=== PATIENT | male | born 1930 | race Caucasian/White ===

== ENCOUNTER 2018-07-24 13:22 | Emergency (ER) | payer MEDICARE ==
--- NOTE | 2018-07-24 13:41 | EDM.PDOC ---
ED HPI GENERAL MEDICAL PROBLEM - General Stated Complaint: FALL Time Seen by Provider: 07/24/18 13:25 Source of Information: Reports: EMS History Limitations: Reports: Altered Mental Status - History of Present Illness INITIAL COMMENTS - FREE TEXT/NARRATIVE: Pt is 87 year old male, apparently with no PMH. According to EMT, patient moved from [facility] 15 years ago into the community. He has no medical problems. I do not see any clinic chart on him. Pt is unresponsive and history obtained from EMS. According to EMS, pt's called the Law enforcement for welfare check on her father( patient). weapons electrical engineering officer went to patient's residence and knocked on the door. weapons electrical engineering officer could hear the patient slowly walk towards the door, and he open the door. When lawn care technician was talking he just collapsed on to the floor. EMS was called. On EMS arrival pt is unresponsive and has been opening his eyes and looks around. No verbal response. Responds to pain. Does not make any sensible eye contact. Does not move his extremities.. Appears very unhygienic, with smell of urine all over the body. Pt makes nonspecific yes and no responses. When asked if her has chest pain he nodes hsi head " yes". When the same question is repeated, nods his head as "No". Onset: Today Onset Date: 07/24/18 Onset Time: 12:30 Associated Symptoms: Reports: Other (cannot obtain) - Related Data Allergies Allergy/AdvReac Type Severity Reaction Status Date / Time No Known Allergies Allergy Verified 02/18/15 17:21 Home Meds: Home Meds NK [No Known Home Meds] 02/18/15 [History] Past Medical History HEENT History: Reports: Impaired Vision Other HEENT History: Pt wears glasses - Infectious Disease History Infectious Disease History: Reports: Chicken Pox, Measles Social & Family History - Family History Family Medical History: Unobtainable ED ROS GENERAL - Review of Systems Review Of Systems: Unable To Obtain (due to altered mental status.) ED EXAM, GENERAL - Physical Exam Exam: See Below Exam Limited By: Altered Mental Status General Appearance: Lethargic, Other ( very poor general hygiene. only responds to pain stimuli, does no speak , but continues to move his head around and nods his head to questions.) Eye Exam: Bilateral Eye: EOMI, PERRL Ears: Normal External Exam, Normal Canal, Hearing Grossly Normal, Normal TMs Ear Exam: Bilateral Ear: TM normal Nose: Normal Inspection, Normal Mucosa, No Blood Throat/Mouth: Normal Inspection, Other (oral mucosa is dry and coated) Head: Atraumatic, Normocephalic Neck: Normal Inspection, Supple, Non-Tender, Full Range of Motion Respiratory/Chest: No Respiratory Distress, Lungs Clear, Normal Breath Sounds, No Accessory Muscle Use, Chest Non-Tender Cardiovascular: Normal Peripheral Pulses, No JVD, Tachycardia. No: No Murmur Peripheral Pulses: 2+: Carotid (L), Carotid (R), Brachial (L), Brachial (R) GI/Abdominal: Normal Bowel Sounds, Soft, Non-Tender, No Organomegaly, No Distention, No Abnormal Bruit, No Mass, Pelvis Stable Extremities: Normal Inspection, Normal Range of Motion, Non-Tender, Normal Capillary Refill, No Pedal Edema Neurological: Unresponsive, Other (hard to evaluate neuro defecit. pt only responds to deep pain) EKG INTERPRETATION EKG Date: 07/24/18 [place]: Normal P-Wave: Present QRS: Normal EKG Interpretation Comments: sinus tachycardia Course - Vital Signs Text/Narrative:: On arrival pt was unresponsive, and his clothing were completely smelling of urine with dried stains of urine all over the clothing, But no fresh wet urine noted. Monitor showed sinus tachycardia. Initial BP was 94/64mmhg. Lung were clear to auscultation. Afebrile. 2 peripheral IV line were obtained. LAbs were drawn, Pt was immediately taken for CT head, Chest xray and Pelvis CT considering his fall. Also Pt appeared dehydrated, so 1 litre IV normal saline bolus was started. Pt's CBC showed white count of 26K and his lactic acid was elevated at 4.1. Ct head showed no acute changes other than chronic brain matter loss. Chest Xray was negative for infiltrate. His pelvic xray was normal. UA was negative. As patient was getting his bolus, he started to get more alert, he would open his eye, and move his limbs.Also by the time his 1 litre of bolus was in he has got more alert and is responding to verbal commands. Moves all 4 extremities voluntarily. Considering his elevated white count, 2 sets of blood culture were obtained. And patient was started on rocephin 1gm IV followed by azithromycin 500mg IV. Also CT abdomen and pelvis was ordered for completion of workup for sepsis. His CMP is back, his sodium is 158 with chloride of 118 with potassium of 4.6, BUN is 117 and creat is 3.39. Apparently patient is in Acute renal failure secondary to dehydration. After the bolus of normal, considering his elevated sodium and chloride, patient has been started on 1/2 NS at 125 cc/hr. Also his troponin is back and elevated at 0.19( this might be related to severe dehydration with elevated creat). Pt does not c/o chest pain. Pt's mentation has improved since his arrival to emergency room. Has very weak voice but at time does answer questions appropriately, but appears exhausted. Once I had all the results available, I did contact [facility] for inpatient admission considering the acuity of patient, and they cannot accept patient as they do not have bridge repair crew person and dialysis this weekend. I did contact [facility] and discuss patient with Dr. Huizar, hospitalist calculation reviewer. He did prefer to have CK done for rhabdomyolysis, which was normal with in normal limits. Ct abdomen and pelvis shows stool impaction in rectum, no infective process identified. I have contacted Pt's Daughter and discussed with her. She does agree with transfer. Pt's last Pulse is 105 bpm and his Blood pressure is 113/74mmhg. He is hemodynamically stable at the time of transfer. Last Recorded V/S: Last Vital Signs Temp 98.1 F 07/24/18 13:23 Pulse 113 H 07/24/18 13:23 Resp BP 113/72 07/24/18 13:23 Pulse Ox - Orders/Labs/Meds Orders: Active Orders 24 hr Category Date Time Status EKG Documentation Completion [RC] ASDIRECTED Care 07/24/18 13:27 Ordered Insert Urinary Catheter [OM.PC] Q24H Care 07/24/18 14:15 Ordered Urinary Catheter Assessment [RC] ASDIRECTED Care 07/24/18 14:06 Ordered Abdomen Pelvis wo Cont [CT] Stat Exams 07/24/18 15:05 Ordered Chest 1V Frontal [CR] Stat Exams 07/24/18 13:27 Ordered Head wo Cont [CT] Stat Exams 07/24/18 13:29 Ordered Pelvis 1V or 2V [CR] Stat Exams 07/24/18 13:27 Ordered CULTURE BLOOD [BC] Stat Lab 07/24/18 14:02 Ordered CULTURE BLOOD [BC] Stat Lab 07/24/18 15:05 Ordered UA W/MICROSCOPIC [URIN] Stat Lab 07/24/18 13:26 Incomplete Sodium Chloride 0.9% [Saline Flush] Med 07/24/18 14:04 Ordered 10 ml FLUSH ASDIRECTED PRN Peripheral IV Insertion Adult [OM.PC] Routine Oth 07/24/18 14:04 Ordered Medication Orders Sodium Chloride (Saline Flush) 10 ml FLUSH ASDIRECTED PRN PRN Reason: Keep Vein Open Labs: Laboratory Tests 07/24/18 07/24/18 07/24/18 Range/Units 13:25 13:26 14:00 WBC 26.2 H* (4.0-11.0) K/uL RBC 6.70 H (4.50-6.50) M/uL Hgb 19.2 H* (13.0-18.0) g/dL Hct 59.9 H (40.0-54.0) % MCV 89 (76-96) fL MCH 28.7 (27.0-32.0) pg MCHC 32.1 (31.0-35.0) g/dL RDW 18.9 H (11.0-16.0) % Plt Count 231 (150-400) K/uL MPV 11.3 H (6.0-10.0) fL Neut % (Auto) 79.8 H (45.0-70.0) % Lymph % (Auto) 3.9 L (20.0-40.0) % [place] % (Auto) 16.2 H (3.0-10.0) % Eos % (Auto) 0.0 L (1.0-5.0) % Baso % (Auto) 0.1 (0.0-0.5) % Neut # (Auto) 20.90 H (2.00-7.50) K/uL Lymph # (Auto) 1.01 L (1.50-4.00) K/uL [place] # (Auto) 4.23 H (0.20-0.80) K/uL Eos # (Auto) 0.01 L (0.04-0.40) K/uL Baso # (Auto) 0.03 (0.02-0.10) K/uL PT (9.0-11.5) sec INR (1.0-3.5) APTT (24.4-33.2) SECONDS Sodium 156 H (136-145) mmol/L Potassium 4.6 (3.5-5.1) mmol/L Chloride 118 H (98-107) mmol/L Carbon Dioxide 19.8 L (21.0-32.0) mmol/L Anion Gap 22.8 H (5.0-15.0) mmol/L BUN 117 H* (8-26) mg/dL Creatinine 3.39 H* (0.70-1.30) mg/dL Est Cr Clr Drug Dosing TNP Estimated GFR (MDRD) 17 L (>60) MLS/MIN BUN/Creatinine Ratio 34.5 H (6-25) Glucose 177 H (74-100) mg/dL Lactic Acid 4.18 H (0.90-1.70) mmol/L Calcium 8.9 (8.5-10.1) mg/dL Total Bilirubin 1.2 H (0.0-1.0) mg/dL AST 55 H (15-37) U/L ALT 52 (12-78) U/L Alkaline Phosphatase 75 (46-116) U/L Troponin I 0.192 H* (0.000-0.060) ng/mL Total Protein 7.2 (6.4-8.2) g/dL Albumin 2.5 L (3.4-5.0) g/dL Globulin 4.7 H (2.2-4.2) g/dL Albumin/Globulin Ratio 0.5 L (0.8-2.0) Urine Color Urine Appearance (CLEAR) Urine pH (5.0-8.0) Ur Specific [place] (1.003-1.030) Urine Protein (NEGATIVE) mg/dL Urine Glucose (UA) (NEGATIVE) mg/dL Urine Ketones (NEGATIVE) mg/dL Urine Occult Blood (NEGATIVE) Urine Nitrite (NEGATIVE) Urine Bilirubin (NEGATIVE) Urine Urobilinogen (0.2-1.0) E.U./dL Ur Leukocyte Esterase (NEGATIVE) 07/24/18 07/24/18 Range/Units 14:00 14:00 WBC (4.0-11.0) K/uL RBC (4.50-6.50) M/uL Hgb (13.0-18.0) g/dL Hct (40.0-54.0) % MCV (76-96) fL MCH (27.0-32.0) pg MCHC (31.0-35.0) g/dL RDW (11.0-16.0) % Plt Count (150-400) K/uL MPV (6.0-10.0) fL Neut % (Auto) (45.0-70.0) % Lymph % (Auto) (20.0-40.0) % [place] % (Auto) (3.0-10.0) % Eos % (Auto) (1.0-5.0) % Baso % (Auto) (0.0-0.5) % Neut # (Auto) (2.00-7.50) K/uL Lymph # (Auto) (1.50-4.00) K/uL [place] # (Auto) (0.20-0.80) K/uL Eos # (Auto) (0.04-0.40) K/uL Baso # (Auto) (0.02-0.10) K/uL PT 13.2 H (9.0-11.5) sec INR 1.4 (1.0-3.5) APTT 22.6 L (24.4-33.2) SECONDS Sodium (136-145) mmol/L Potassium (3.5-5.1) mmol/L Chloride (98-107) mmol/L Carbon Dioxide (21.0-32.0) mmol/L Anion Gap (5.0-15.0) mmol/L BUN (8-26) mg/dL Creatinine (0.70-1.30) mg/dL Est Cr Clr Drug Dosing Estimated GFR (MDRD) (>60) MLS/MIN BUN/Creatinine Ratio (6-25) Glucose (74-100) mg/dL Lactic Acid (0.90-1.70) mmol/L Calcium (8.5-10.1) mg/dL Total Bilirubin (0.0-1.0) mg/dL AST (15-37) U/L ALT (12-78) U/L Alkaline Phosphatase (46-116) U/L Troponin I (0.000-0.060) ng/mL Total Protein (6.4-8.2) g/dL Albumin (3.4-5.0) g/dL Globulin (2.2-4.2) g/dL Albumin/Globulin Ratio (0.8-2.0) Urine Color Yellow Urine Appearance Clear (CLEAR) Urine pH 5.0 (5.0-8.0) Ur Specific [place] 1.025 (1.003-1.030) Urine Protein 100 H (NEGATIVE) mg/dL Urine Glucose (UA) Negative (NEGATIVE) mg/dL Urine Ketones Negative (NEGATIVE) mg/dL Urine Occult Blood Trace-intact H (NEGATIVE) Urine Nitrite Negative (NEGATIVE) Urine Bilirubin Small H (NEGATIVE) Urine Urobilinogen 2.0 H (0.2-1.0) E.U./dL Ur Leukocyte Esterase Negative (NEGATIVE) Meds: Medications Generic Name Dose Route Start Last Admin Trade Name Freq PRN Reason Stop Dose Admin Sodium Chloride 10 ml 07/24/18 14:04 Saline Flush FLUSH ASDIRECTED PRN Keep Vein Open Discontinued Medications Generic Name Dose Route Start Last Admin Trade Name Freq PRN Reason Stop Dose Admin Ceftriaxone Sodium Confirm 07/24/18 14:08 Rocephin Administered 07/24/18 14:09 Dose 1 gm .ROUTE .STK-MED ONE Azithromycin 500 mg/ Sodium 250 mls @ 250 mls/hr 07/24/18 14:04 Chloride IV 07/24/18 15:03 ONETIME ONE Ceftriaxone Sodium 1 gm/ 50 mls @ 100 mls/hr 07/24/18 14:03 Sodium Chloride IV 07/24/18 14:32 ONETIME ONE Departure - Departure Time of Disposition: 17:30 Disposition: DC/Tfer to [facility] 02 Condition: Fair Clinical Impression: Sepsis, Pneumonia, Acute renal failure, Dehydration, Elevated troponin - Discharge Information *PRESCRIPTION DRUG MONITORING PROGRAM REVIEWED*: Not Applicable *COPY OF PRESCRIPTION DRUG MONITORING REPORT IN PATIENT SANTIAGO: Not Applicable - Problem List & Annotations (1) Acute renal failure SNOMED Code(s): 63279564 Code(s): N17.9 - ACUTE KIDNEY FAILURE, UNSPECIFIED Status: Acute Current Visit: Yes (2) Pneumonia SNOMED Code(s): 934893805 Code(s): J18.9 - PNEUMONIA, UNSPECIFIED ORGANISM Status: Acute Current Visit: Yes (3) Sepsis SNOMED Code(s): 90034246 Code(s): A41.9 - SEPSIS, UNSPECIFIED ORGANISM Status: Acute Current Visit : Yes - Problem List Review Problem List Initiated/Reviewed/Updated: Yes - My Orders Last 24 Hours: My Active Orders 07/24/18 13:26 UA W/MICROSCOPIC [URIN] Stat 07/24/18 13:27 EKG Documentation Completion [RC] ASDIRECTED Chest 1V Frontal [CR] Stat Pelvis 1V or 2V [CR] Stat 07/24/18 13:29 Head wo Cont [CT] Stat 07/24/18 14:02 CULTURE BLOOD [BC] Stat 07/24/18 14:04 Sodium Chloride 0.9% [Saline Flush] 10 ml FLUSH ASDIRECTED PRN Peripheral IV Insertion Adult [OM.PC] Routine 07/24/18 14:06 Urinary Catheter Assessment [RC] ASDIRECTED 07/24/18 14:15 Insert Urinary Catheter [OM.PC] Q24H 07/24/18 15:05 Abdomen Pelvis wo Cont [CT] Stat CULTURE BLOOD [BC] Stat - Assessment/Plan Last 24 Hours: My Active Orders 07/24/18 13:26 UA W/MICROSCOPIC [URIN] Stat 07/24/18 13:27 EKG Documentation Completion [RC] ASDIRECTED Chest 1V Frontal [CR] Stat Pelvis 1V or 2V [CR] Stat 07/24/18 13:29 Head wo Cont [CT] Stat 07/24/18 14:02 CULTURE BLOOD [BC] Stat 07/24/18 14:04 Sodium Chloride 0.9% [Saline Flush] 10 ml FLUSH ASDIRECTED PRN Peripheral IV Insertion Adult [OM.PC] Routine 07/24/18 14:06 Urinary Catheter Assessment [RC] ASDIRECTED 07/24/18 14:15 Insert Urinary Catheter [OM.PC] Q24H 07/24/18 15:05 Abdomen Pelvis wo Cont [CT] Stat CULTURE BLOOD [BC] Stat Assessment:: Sepsis possible pneumonia Acute renal failure secondary to dehydration elevated troponin Plan: I have contacted Pt's Daughter and discussed with her. She does agree with transfer. Pt's last Pulse is 105 bpm and his Blood pressure is 113/74mmhg. Continue IV 1/ 2 NS at 125cc/hr . He is alert and hemodynamically stable at the time of transfer. Further care per Dr. Huizar and his team.
[2018-07-24] MEDS ORDERED: cefTRIAXone 1 GM in Sodium Chloride 0.9% 50 ML IV ONE (14:03)
[2018-07-24] MEDS ORDERED: Sodium Chloride 0.9% 10 ML Syringe FLUSH PRN (14:04)
[2018-07-24] MEDS ORDERED: cefTRIAXone 1 GM Vial ONE (14:08)
[2018-07-24] MEDS: Azithromycin 500 MG in Sodium Chloride 0.9% 250 ML IV ONE ×2 (16:10→18:53)
[2018-07-24 16:33] VITALS: BP 130/74
--- NOTE | 2018-07-24 17:08 | CT ---
DATE OF SERVICE: 07/24/18 CLINICAL DATA: unresponsive with fall UNENHANCED BRAIN CT: Multislice acquisition through the brain without IV contrast was performed. No priors. There is marked diffuse cerebral atrophy. There are periventricular lucencies bilaterally consistent with small vessel ischemic change. No masses or mass effect. No intracranial hemorrhage. No evidence of acute or subacute infarct. No fractures. There is mucosal thickening in the left maxillary sinus consistent with chronic sinusitis. IMPRESSION: No acute intracranial abnormalities. [id number] [facility]
--- NOTE | 2018-07-24 17:11 | CR ---
DATE OF SERVICE: 07/24/18 CLINICAL DATA: unresponsive AP CHEST: Comparison is made to a prior exam dated 06/17/12. The heart size is normal. There is calcification of the aortic arch. There is prominence of the proximal pulmonary artery suggesting the possibility of pulmonary hypertension. There are mild interstitial changes throughout both lungs. There are mild atelectatic changes in both lung bases. The lungs are otherwise clear. No pneumothorax. No pleural effusions. [id number] [facility]
--- NOTE | 2018-07-24 17:13 | CR ---
DATE OF SERVICE: 07/24/18 CLINICAL DATA: fall AP PELVIS: No priors. There is diffuse osteopenia. No acute fracture or dislocation. 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 No focal lytic or blastic bone lesions. [id number] [facility]
--- NOTE | 2018-07-24 17:20 | CT ---
DATE OF SERVICE: 07/24/18 CLINICAL DATA: elevated white count with + lactic acid UNENHANCED ABDOMEN AND PELVIC CT: Multislice acquisition through the abdomen and pelvis without IV or oral contrast was performed. No priors. There is marked breathing motion artifact on most of the images degrading image quality and diagnostic utility. There are interstitial changes in both lower lungs with emphysematous changes bilaterally. There are mild atelectatic changes in both lung bases with a small area of consolidation in the left lung base posteriorly. The heart size is normal. There are mild coronary artery calcifications. The liver appears grossly normal. The gallbladder appears grossly normal. The spleen appears normal. The pancreas appears grossly normal. The right and left adrenals appear grossly normal. There is atrophy of both kidneys. No hydronephrosis. There is a Montesinos catheter within the bladder. The bladder wall appears diffusely thickened, most likely related to decompression. The appendix is not adequately seen. There is a large amount of stool noted within the distal sigmoid colon and rectum. There is diverticulosis of the descending and sigmoid colon. No evidence of diverticulitis. No free air. No free fluid. No dilated loops of bowel. No adenopathy. No aortic aneurysm. No displaced fractures. IMPRESSION: Large amount of stool in distal sigmoid colon and rectum. Other findings as discussed above. [id number] [facility]
== END 2018-07-24 16:44 ==
LOC: LB.ED 13:22
DX: A41.9 Sepsis, unspecified organism (principal); J18.9 Pneumonia, unspecified organism; E86.0 Dehydration; N17.9 Acute kidney failure, unspecified; R79.89 Other specified abnormal findings of blood chemistry
CPT/HCPCS: 36415; 51702; 70450; 71045; 72170; 74176; 80053; 81001; 82550; 83605; 84484; 85025; 85610; 85730; 87040; 93005; 96365; 96367; 99285; A0425; A0429; J0456; J0696; J3490; J7040; J7050